=== PATIENT | female | born 2000 | race Caucasian/White ===

== ENCOUNTER → 2020-10-26 | Outpatient (CLI) | payer OTHER ==
[2015-10-06 14:46] VITALS: BP 123/57
[~2020-10-26] MED LIST: OXYC1TAB19 PO
--- NOTE | 2020-10-26 15:51 | RAD ---
CT head without contrast dated 10/26/2020 3:47 PM Comparison: None CLINICAL INDICATION: Headache TECHNIQUE: Contiguous axial imaging of the head was performed from skull base to vertex. One or more of the following individualized dose reduction techniques were utilized for this examinat ion: 1. Automated exposure control 2. Adjustment of the mA and/or kV according to patient size 3. Use of iterative reconstruction technique. FINDINGS: Ventricles and sulci are within normal limits for age. No midline shift or mass effect. Brain parench yma is of normal attenuation. No hemorrhage or extra-axial collection. Posterior fossa and brainstem unremarkable. Visualized paranasal sinuses and mastoid air cells are clear. No apparent calvarial abnormality. IMPRESSION: No evidence of acute intracranial abnormality. Electronically signed by: Dani Cummins MD (10/26/2020 3:49 PM) [place]
== END ==
LOC: CT 13:47
PROVIDERS: ATTEND Preventive Medicine Occupational Medicine
DX: R51.9 Headache, unspecified (principal)
CPT/HCPCS: 70450